=== PATIENT | female | born 1960 | race Caucasian/White ===

== ENCOUNTER 2017-11-15 00:47 | Emergency (ER) | payer OTHER ==
[~2017-11-15] VITALS: Ht 167.6 cm; Wt 66.7 kg
[~2017-11-15 00:47] MED LIST: DIFLUCAN200 MG PO; MAALOX EXTRA S360 ML PO; NORCO 325 MG-51 TAB PO; ZEGERID OTC PO
--- NOTE | 2017-11-15 01:58 | ED GENERAL ADULT ---
History of Present Illness General Chief Complaint: General Adult Stated Complaint: PT C/C "FEEL LIKE I'M GOING TO PASS OUT DRY MOUTH" Source: patient, old records Exam Limitations: no limitations Vital Signs & Intake/Output Vital Signs & Intake/Output Vital Signs Date Time Temp Pulse Resp B/P B/P Pulse O2 O2 Flow FiO2 Mean Ox Delivery Rate 11/15 0109 98 Room Air Room Air 11/15 0103 97.2 104 16 110/60 98 Room Air Room Air Allergies Coded Allergies: MDX - ASA (aspirin) (ASA (ASPIRIN)) (Severe, GERD 07/09/14) Uncoded Allergies: NSAIDS (Severe, GERD UPSET 07/09/14) Reconcile Medications Aluminum Hydroxide/Magnesium (Maalox Extra Strength 360 Ml) (Unknown Strength) SARMAD (Unknown Dose) PO 4 TIMES/DAY PRN GASTRITIS/ACID REFLUX (Reported) OMEPRAZOLE/SODIUM BICARBONATE (Zegerid Otc 20-1,100 MG Cap) 20 MG-1.1 GRAM CAPSULE 1-2 CAP PO BID GASTRITIS/REFLUX (Reported) Triage Note: 56YO FEMALE TO TRIAGE W/CO DRY MOUTH AND "FEELING DRY ALL THE WAY DOWN MY THROAT TO MY STOMACH" ALSO CO DIZZINESS Triage Nurses Notes Reviewed? yes HPI: Patient presents for evaluation of a very dry mouth and that "something is really wrong". It addition to the dry mouth she states she feels like she is going to pass out. She feels that her skin is crawling. Symptoms are described as severe more or less constant and began abruptly this morning. She feels weird". She denies any associated fever, cold symptoms, vomiting, diarrhea, dysuria, rashes, recent travel or dyspnea. She states she did feel nauseous earlier and also had the feeling of chest heaviness. She is being treated for acid reflux and takes Wellbutrin to quit smoking. She admits to only rare alcohol intake but denies drug use. She is a current cigarette smoker. Past History Travel History Traveled to [place] past 21 day No Medical History Any Pertinent Medical History? see below for history Neurological: NONE EENT: NONE Cardiovascular: NONE Respiratory: NONE Gastrointestinal: GERD Hepatic: NONE Renal: NONE Musculoskeletal: NONE Psychiatric: NONE Endocrine: NONE Blood Disorders: NONE Cancer(s): NONE [employer] WORK[employer] GENERAL/Reproductive: NONE Other Medical Hx: Oral and esophageal candidiasis Surgical History Surgical History: non-contributory Psychosocial History What is your primary language Com[place]an Tobacco Use: Current Daily Use Daily Tobacco Use Amount/Type: => 5 Cigarettes daily Family History Hx Contributory? No Review of Systems Review of Systems Constitutional: Reports: no symptoms. EENTM: Reports: see HPI. Respiratory: Reports: no symptoms. Cardiovascular: Reports: chest pain. GI: Reports: no symptoms. Genitourinary: Reports: no symptoms. Musculoskeletal: Reports: no symptoms. Skin: Reports: no symptoms. Neurological/Psychological: Reports: no symptoms. Hematologic/Endocrine: Reports: no symptoms. Immunologic/Allergic: Reports: no symptoms. All Other Systems: Reviewed and Negative Physical Exam Physical Exam General Appearance: SEE BELOW Comments: Gen.: Well-nourished, well-developed, no acute respiratory distress. Head: Normocephalic, atraumatic. Eyes: Normal inspection bilaterally Ears: Normal inspection bilaterally Nose: Normal inspection Throat/mouth : Dry tongue Neck: Supple, full range of motion, no goiter Heart: Regular rate and rhythm, no murmurs rubs or gallops Lungs: Clear to auscultation bilaterally with normal air entry Chest: Nontender Back: Normal range of motion Abdomen: Soft, epigastric and left upper quadrant abdominal tenderness (patient states this is chronic), nondistended, normal bowel sounds Extremities: Normal range of motion grossly, equal radial pulses, no cyanosis clubbing or edema Neurologic: Cranial nerves grossly intact, speech is clear Skin: warm and dry Psychiatric: Calm, cooperative, no apparent delusions or hallucinations Core Measures ACS in differential dx? No CVA/TIA Diagnosis: No Sepsis Present: No Sepsis Focused Exam Completed? No Progress Differential Diagnoses I considered the following diagnoses in my evaluation of the patient: Medication side effect, anxiety, electrolyte abnormality, thyroid disease Plan of Care: Orders Procedure Date/time Status TSH REFLEX 11/15 156 Complete MAGNESIUM 11/15 156 Complete LIPASE 11/15 156 Complete COMPREHENSIVE METABOLIC PANEL 11/15 156 Complete CBC WITHOUT DIFFERENTIAL 11/15 156 Complete Laboratory Tests 11/15/17 0228: Anion Gap 10, Estimated GFR > 60, BUN/Creatinine Ratio 20.0, Glucose 98, Calcium 9.3, Magnesium 2.2, Total Bilirubin 0.4, AST 20, ALT 30, Alkaline Phosphatase 48 , Total Protein 6.8, Albumin 4.1, Globulin 2.7, Albumin/Globulin Ratio 1.5, Lipase 74, TSH &T3 &Free T4 Intrp 3.000, CBC w Diff NO MAN DIFF REQ, RBC 3.96 L , MCV 88.1, MCH 30.5, MCHC 34.6, RDW 12.5, MPV 7.3 L, Gran % 62.6, Lymphocytes % 26.9, Monocytes % 5.9, Eosinophils % 3.8, Basophils % 0.8, Absolute Granulocytes 4.9, Absolute Lymphocytes 2.1, Absolute Monocytes 0.5, Absolute Eosinophils 0.3, Absolute Basophils 0.1 Initial ED EKG: none Comments: 11/15/2017 4:03:49 AM I have updated Natalie on test results. She has been sleeping after receiving the Ativan. Although she states the mouth and "esophagus" still feel dry she is less anxious about it. Departure Departure Disposition: HOME OR SELF CARE Condition: Stable Clinical Impression Primary Impression: Dry mouth Referrals: Patient Has No Primary Care Dr (PCP/Family) Additional Instructions: Consider discontinuing the Wellbutrin due to potential side effects. Follow-up with your primary care physician for reevaluation this week. Return if any concerns or sudden worsening. Thank you for choosing the [facility] for your care. It was a pleasure to serve you today. Andre Walker M.D. [facility] Departure Forms: Customer Survey General Discharge Information Prescriptions: Current Visit Scripts Lorazepam (Ativan) 1 TAB PO TID PRN dry mouth #6 TAB Ondansetron (Zofran Odt) 1 TAB SL Q6 PRN NAUSEA/VOMITING #10 TAB Critical Care Note Critical Care Note Critical Care Time: non-applicable
[2017-11-15 02:41] LABS: ABSOLUTE BASOPHIL COUNT 0.1 /CUMM (0.0-0.2); ABSOLUTE EOSINOPHIL COUNT 0.3 /CUMM (0.0-0.7); ABSOLUTE GRANULOCYTE CT 4.9 /CUMM (1.4-6.5); ABSOLUTE LYMPH COUNT 2.1 /CUMM (1.2-3.4); ABSOLUTE MONOCYTE COUNT 0.5 /CUMM (0.10-0.60); BASOPHIL % 0.8 % (0.0-2.0); EOSINOPHIL % 3.8 % (0-5); GRANULOCYTE % 62.6 % (42.2-75.2); HEMATOCRIT 34.9 % (37-47); MEAN CORPUSCULAR HGB 30.5 PG (27.0-31.0); MEAN CORPUSCULAR HGB CONC 34.6 G/DL (33.0-37.0); MEAN CORPUSCULAR VOLUME 88.1 FL (81.0-99.0); MEAN PLATELET VOLUME 7.3 FL (7.4-10.4); PLATELET COUNT 275 /CUMM (130-400); RBC DISTRIBUTION WIDTH 12.5 % (11.5-14.5); RED BLOOD CELL CT 3.96 /CUMM (4.20-5.40); WHITE BLOOD CELL COUNT 7.9 /CUMM (4.8-10.8)
[2017-11-15] MEDS ORDERED: ATIVAN0.5 M1 PO (04:07)
[2017-11-15] MEDS ORDERED: ZOFRAN ODT4 M1 SL (04:07)
[2017-11-15 04:31] VITALS: BP 100/58
== END 2017-11-15 04:32 ==
LOC: ERH 00:47
PROVIDERS: Emergency Medicine
DX: R68.2 Dry mouth, unspecified (principal); R42 Dizziness and giddiness
CPT/HCPCS: 96374; J3101